=== PATIENT | female | born 1970 | race Native Hawaiian/Other Pacific Islander ===

== ENCOUNTER 2018-07-07 17:25 | Emergency (ER) | payer OTHER ==
[~2018-07-07] VITALS: Ht 167.6 cm; Wt 65.8 kg
[~2018-07-07 17:25] MED LIST: AMOX500T5 PO; ASA LO-DOSE81 MG PO; BIAXIN250 MG PO; BUDEPRION150 MG PO; CLON1TAB18 PO; COZAAR25 MG PO; ECOTRIN REGULA325 MG PO; IMDUR30 MG PO; LIPITOR40 MG PO; LISI5TAB10 PO; METO25TA4 PO; NITRO-DUR0.4 MG/HR SL; OMEPRAZOLE40 MG PO; PLAVIX75 MG PO
[2018-07-07 18:04] LABS: PLATELET COUNT 234 K/uL (152-353)
[2018-07-07 18:16] LABS: POTASSIUM 3.8 mmol/L (3.6-5.2); SODIUM 139 mmol/L (136-145)
[2018-07-07 19:56] VITALS: BP 118/78; TEMP 98.2
== END 2018-07-07 19:57 | disposition home or self-care (01) ==
LOC: ED 17:25
DX: I20.9 Angina pectoris, unspecified (principal); I44.7 Left bundle-branch block, unspecified; J40 Bronchitis, not specified as acute or chronic; R00.0 Tachycardia, unspecified
CPT/HCPCS: 36415; 80053; 80307; 81000; 82550; 82553; 84484; 85027; 93005; 99283